=== PATIENT | male | born 2000 | race American Indian/Alaskan Native ===

== ENCOUNTER 2018-11-07 06:14 | Emergency (ER) | payer OTHER ==
[2018-11-07 06:25] VITALS: BP 139/88
[2018-11-07] MEDS ORDERED: FUL-GLO OP ONE (08:09)
[2018-11-07] MEDS ORDERED: TETRACAINE 0.5% OU ONE (08:09)
--- NOTE | 2018-11-07 08:28 | Emergency Department Report ---
ED Eye Problem HPI - General Chief complaint: Eye Problems Stated complaint: LEFT EYE IRRITATION Time Seen by Provider: 11/07/18 07:42 Source: patient Mode of arrival: Ambulatory Limitations: No Limitations - History of Present Illness Initial comments: Patient is a 18-year-old male who presents to the emergency room complains of left eye erythema and irritation that began 3 days ago. He states 3 days ago he felt like he had something and the eye and has been constantly rubbing the eye. He woke up this morning he had redness of the eye and noticed some swelling around the eye. Denies any vision issues. states has had watery drainage. He does not wear any contacts. He denies any medical history, allergies medications or daily medications. - Related Data Previous Rx's Medication Instructions Recorded Last Taken Type Erythromycin [Erythromycin Ophth 0.5 inch OP QID 5 Days #1 tube 11/07/18 Unknown Rx Oint] Allergies Allergy/AdvReac Type Severity Reaction Status Date / Time No Known Allergies Allergy Verified 11/07/18 06:22 ED Review of Systems ROS: Stated complaint: LEFT EYE IRRITATION Other details as noted in HPI Comment: All other systems reviewed and negative ED Past Medical Hx - Past Medical History Previous Medical History?: No - Surgical History Past Surgical History?: No - Social History Smoking Status: Never Smoker Substance Use Type: None - Medications Home Medications: Home Medications Medication Instructions Recorded Confirmed Last Taken Type Erythromycin [Erythromycin Ophth 0.5 inch OP QID 5 Days #1 tube 11/07/18 Unknown Rx Oint] ED Physical Exam - General Limitations: No Limitations General appearance: alert, in no apparent distress - Head Head exam: Present: atraumatic, normocephalic - Eye Eye exam: Present: PERRL, EOMI, conjunctival injection (left), other (small amount of edema to the left upper eyelid, no chalazion/no horedeolum, fluoroscein stained used in the left eye and looked under jordan lamp, no uptake present, no foreign body) Pupils: Present: normal accommodation - ENT ENT exam: Present: mucous membranes moist - Neurological Exam Neurological exam: Present: alert, oriented X3 - Psychiatric Psychiatric exam: Present: normal affect, normal mood - Skin Skin exam: Present: warm, dry, intact ED Course Vital Signs 11/07/18 06:24 Temperature 97.9 F Pulse Rate 72 Respiratory 18 Rate Blood Pressure 139/88 [Right] O2 Sat by Pulse 99 Oximetry ED Medical Decision Making - Medical Decision Making Patient is a 18-year-old male who presents to the emergency room complains of left eye erythema and irritation that began 3 days ago. He states 3 days ago he felt like he had something and the eye and has been constantly rubbing the eye. He woke up this morning he had redness of the eye and noticed some swelling around the eye. Denies any vision issues. states has had watery drainage. He does not wear any contacts. He denies any medical history, allergies medications or daily medications. on exam: small amount of edema to the left upper eyelid, no chalazion/no horedeolum, fluoroscein stained used in the left eye and looked under jordan lamp, no uptake present, no foreign body. pt given prescription for erythromycin ointment. advised pt to please use medication as prescribed. Please avoid rubbing the eyes. Follow up with a primary care doctor the next 2-3 days. Return to emergency room for any new or worsening symptoms - Differential Diagnosis conjunctivitis, corneal abrasion Critical care attestation.: If time is entered above; I have spent that time in minutes in the direct care of this critically ill patient, excluding procedure time. ED Disposition Clinical Impression: Conjunctivitis Qualifiers: Conjunctivitis type: acute Acute conjunctivitis type: unspecified Laterality: left Qualified Code(s): H10.32 - Unspecified acute conjunctivitis, left eye Disposition: DC-01 TO HOME OR SELFCARE Is pt being admited?: No Does the pt Need Aspirin: No Condition: Stable Instructions: Conjunctivitis (ED) Additional Instructions: Please use medication as prescribed. Please avoid rubbing the eyes. Follow up with a primary care doctor the next 2-3 days. Return to emergency room for any new or worsening symptoms Prescriptions: Erythromycin [Erythromycin Ophth Oint] 0.5 inch OP QID 5 Days #1 tube Referrals: ERIN BAUTISTA MD [Primary Care Provider] - 2-3 Days Time of Disposition: 08:27 Print Language: GREEK
== END 2018-11-07 08:36 | disposition home or self-care (01) ==
LOC: ED 06:14
DX: H10.32 Unspecified acute conjunctivitis, left eye (principal)
CPT/HCPCS: 99282

== ENCOUNTER 2018-11-09 10:33 | Emergency (ER) | payer SELFPAY ==
[2018-11-09 10:41] VITALS: BP 117/78
[2018-11-09] MEDS ORDERED: CLEOCIN PO ONE (11:17)
[2018-11-09] MEDS ORDERED: DELTASONE PO ONE (11:17)
--- NOTE | 2018-11-09 11:23 | Emergency Department Report ---
[facility] Chief Complaint: Eye Problems Stated Complaint: EYE IRRITATION Time Seen by Provider: 11/09/18 10:53 Duration: 3 Days Side: Left Severity: moderate Symptoms: Yes Eye Redness, Yes Eye Pain, Yes Blurred Vision, No Eye Itching, No Mucous Drainage, No Purulent Drainage, No Preceding URI, No H/O Allergic Rhinitis, No Contact Lens Use, No Trauma, No Fever, No Headache Other History: Patient returns to the ED stating that his left side swelling and redness is not getting better. He denies loss of vision, fever, chills, trauma or injury to the eye or foreign body to the eye ED Review of Systems ROS: Stated complaint: EYE IRRITATION Other details as noted in HPI Comment: All other systems reviewed and negative ED Past Medical Hx - Past Medical History Previous Medical History?: No - Surgical History Past Surgical History?: No - Social History Smoking Status: Never Smoker Substance Use Type: None - Medications Home Medications: Home Medications Medication Instructions Recorded Confirmed Last Taken Type Erythromycin [Erythromycin Ophth 0.5 inch OP QID 5 Days #1 tube 11/07/18 Unknown Rx Oint] Clindamycin [Clindamycin CAP] 300 mg PO BID #20 capsule 11/09/18 Unknown Rx [facility] Exam - Exam General: Vital signs noted. No distress. Alert and acting appropriately. Eye Exam: Left Injection, Left Chemosis, Neither Abnormal Pupil, Neither EOMI, Neither Eye Foreign Body, Neither Lid Foreign Body, Neither Mucous Discharge, Neither Purulent Discharge HEENT: No Nasal Congestion, No Pharyngeal Erythema Remainder of HEENT: Normal Lungs: Yes Clear Lung Sounds, Yes Good Air Exchange, No Wheezes, No Stridor, No Cough, No Nasal Flaring, No Retractions, No Use of Accessory Muscles Exam: Conjunctiva erythema ,. 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 I discussed the patient is new or worsening symptoms to return to ED immediately Patient's vital signs are stable he's in no distress. Patient is vision is intact, visual acuity test performed, within normal limits. Discussed the patient to follow up with her primary care physician in 3-5 days. Critical care attestation.: If time is entered above; I have spent that time in minutes in the direct care of this critically ill patient, excluding procedure time. ED Disposition Clinical Impression: Left conjunctivitis, Blepharitis, left eye Disposition: DC-01 TO HOME OR SELFCARE Is pt being admited?: No Does the pt Need Aspirin: No Condition: Stable Instructions: Orbital Cellulitis (ED), Blepharitis (ED) Additional Instructions: Make sure to follow up with the primary care physician as discussed. Take all your medications as you've been prescribed. If you have any worsening symptoms or develop new symptoms please return to ED immediately. Prescriptions: Clindamycin [Clindamycin CAP] 300 mg PO BID #20 capsule Referrals: ERIN BAUTISTA MD [Primary Care Provider] - 3-5 Days INDIGO GIVENS MD [Staff Physician] - 3-5 Days Forms: Accompanied Note, Work/School Release Form(ED) Time of Disposition: 11:36
== END 2018-11-09 11:50 | disposition home or self-care (01) ==
LOC: ED 10:33
DX: H01.006 Unspecified blepharitis left eye, unspecified eyelid (principal); H10.9 Unspecified conjunctivitis
CPT/HCPCS: 99282; J7512

== ENCOUNTER 2019-06-01 19:02 | Emergency (ER) | payer SELFPAY ==
[2019-06-01 19:31] VITALS: BP 129/73
--- NOTE | 2019-06-01 20:59 | Emergency Department Report ---
Chief Complaint: Earache Stated Complaint: EAR INFECTION Time Seen by Provider: 06/01/19 20:54 - HPI History of Present Illness: This is a 19 y.o. M. that presents to the ER with right ear pain and muffled hearing for 4 days. Denies cough, fever, chills, drainage from right ear, or dizziness. - ROS Review of Systems: HEENT: Right ear pain - Exam Vital Signs: Vital Signs 06/01/19 19:27 Temperature 98.8 F Pulse Rate 82 Respiratory 18 Rate Blood Pressure 129/73 O2 Sat by Pulse 98 Oximetry Physical Exam: EENT: Bulging erythematous right TM, pinna ttp, no otorrhea MSE screening note: Focused history and physical exam performed. Due to findings the following was ordered: ED Medical Decision Making - Medical Decision Making This is a 19 y.o. M. that presents to the ER with right ear pain for 4 days. Exam and history most consistent with AOM. I have a low suspicion at this time for mastoiditis, malignant otitis externa, herpes, retained foreign body. Start Amoxicillin. Follow up with PCP. Given strict return instructions. Discharge home stable. ED Disposition for MSE Clinical Impression: Otalgia of right ear Otitis media Qualifiers: Otitis media type: suppurative Chronicity: acute Laterality: right Recurrence: non-recurrent Spontaneous tympanic membrane rupture: without spontaneous rupture Qualified Code(s): H66.001 - Acute suppurative otitis media without spontaneous rupture of ear drum, right ear Disposition: DC-01 TO HOME OR SELFCARE Is pt being admited?: No Condition: Stable Instructions: Otitis Media (ED) Prescriptions: Amoxicillin [Trimox CAP] 500 mg PO BID #20 capsule Referrals: [facility] [Outside] - 3-5 Days [facility] [Outside] - 3-5 Days [facility] [Outside] - 3-5 Days
== END 2019-06-01 21:32 | disposition home or self-care (01) ==
LOC: ED 19:02
DX: H66.91 Otitis media, unspecified, right ear (principal)
CPT/HCPCS: 99282